=== PATIENT | male | born 1955 | race Caucasian/White ===

== ENCOUNTER 2018-11-18 09:52 | Day surgery (SDC) | payer MEDICAID ==
[2018-11-18] VITALS (11 sets, daily range): BP systolic 120–159; BP diastolic 73–87
[~2018-11-18] VITALS: Ht 190.5 cm; Wt 87.3 kg
[2018-11-18] MEDS ORDERED: normal saline 1,000 ML IV SCH (10:15)
[2018-11-18] MEDS ORDERED: nitroGLYCERIN 0.4mg SUBLingual tab SL PRN (10:15)
[2018-11-18] MEDS ORDERED: LORazepam 0.5 MG tablet PO PRN (10:15)
[2018-11-18] MEDS ORDERED: diphenhydrAMINE 25mg capsule PO PRN (10:15)
[2018-11-18] MEDS ORDERED: ATOR-2 PO (10:47)
[2018-11-18] MEDS ORDERED: CHOL100046 PO (10:48)
[2018-11-18] MEDS ORDERED: GABA-532 PO (10:48)
[2018-11-18] MEDS ORDERED: HYDR25TA4 PO ×2 (10:49→10:52)
[2018-11-18] MEDS ORDERED: HYDR-3964 PO (10:53)
[2018-11-18] MEDS ORDERED: METO50TA7 PO (10:54)
[2018-11-18] MEDS ORDERED: DABI150C PO (10:54)
[2018-11-18] MEDS ORDERED: KEN0.1O TP (10:55)
[2018-11-18] MEDS ORDERED: ASPI81TA52 PO (10:55)
[2018-11-18] MEDS ORDERED: nitroGLYCERIN-Tridil 50MG/D5W 250 ML IV ONE (12:37)
[2018-11-18] MEDS ORDERED: iohexol 350 MG/ML 50ML vial IV ONE ×2 (12:54→13:06)
[2018-11-18] MEDS ORDERED: iohexol 350MG/ML 100ml bottle IV ONE (13:06)
[2018-11-18] MEDS ORDERED: midazolam 2 mg/2 ml injection ONE ×2 (13:06→13:12)
[2018-11-18] MEDS ORDERED: fentaNYL/PF 50MCG/1 ML 2ML syringe ONE (13:07)
[2018-11-18] MEDS ORDERED: ondansetron/PF 4mg/2ml inj IV PRN (13:30)
[2018-11-18] MEDS ORDERED: proCHLORperazine 10 MG/2 ml inj IV PRN (13:30)
[2018-11-18] MEDS ORDERED: OXAZEpam 15mg capsule PO PRN (13:30)
[2018-11-18] MEDS ORDERED: HYDROcodone/acetaminophen 10/325mg tab PO PRN (13:30)
[2018-11-18] MEDS ORDERED: HYDROcodone/acetaminophen 5mg/325mg tablet PO PRN (13:30)
== END 2018-11-18 19:25 | disposition home or self-care (01) ==
LOC: SSTAY O 09:52
PROVIDERS: ATTEND Internal Medicine Cardiovascular Disease
DX: I25.10 Atherosclerotic heart disease of native coronary artery without angina pectoris (principal); I10 Essential (primary) hypertension; E11.9 Type 2 diabetes mellitus without complications; Z72.89 Other problems related to lifestyle; Z79.82 Long term (current) use of aspirin; Z79.899 Other long term (current) drug therapy; Z87.891 Personal history of nicotine dependence
CPT/HCPCS: 93458; 99152; 99153; J1644; J2250; J3010; J7030; Q0163; Q9967; A4620; A6258; C1760; G0278; J3490